=== PATIENT | female | born 1950 | race Caucasian/White ===

== ENCOUNTER 2017-01-27 06:48 | Day surgery (SDC) | payer MEDICARE, MEDICAID ==
[~2017-01-27] VITALS: Ht 162.6 cm; Wt 64.4 kg
[~2017-01-27 06:48] MED LIST: CITALOPRAM10 MG PO; ESTRADIOL1 MG PO; IMDUR 60MG. TAB60 MG PO; LOPRESSOR 25MG.25 MG PO; LOVASTATIN20 MG PO
--- NOTE | 2017-01-27 08:44 | Operative Note ---
Colonoscopy (Sam) Procedure date: 01/27/17 Date of : 46 Procedure:Colonoscopy Colonoscopy with cold and hot snare polypectomy and cold biopsies Indications: Mrs. Wiley is a 66-year-old female who is here for diagnostic colonoscopy. She has had RIGHT lower quadrant abdominal pain that has been excruciating at times. Her CAT scan of the abdomen and pelvis did show kidney stones in the LEFT kidney without hydronephrosis. The patient also had some diverticulosis of the sigmoid colon. The appendix was normal. She has had prior hysterectomy. She did have some thickening of the cecum which was possibly related to nondistention. She has had transvaginal ultrasound which was normal. She did have cholecystectomy in the early 1999s. The patient does have constipation/obstipation with a feeling of incomplete bowel evacuation. She reports some bloating and gassiness. She sometimes feels as if she cannot get a good deep breath. She reports no rectal bleeding, weight loss or family history of colon cancer. This is her first colonoscopy. Performing Provider: Sarah Vargas MD Referrring Provider: Joanne Lipscomb M.D./Jaxon Dominguez M.D. Sedation: MAC sedation Procedure: Prior to the procedure, a history and physical exam was performed, and patient medications and allergies were reviewed. The risks and benefits of the procedure and the sedation options and risks were discussed with the patient. All questions were answered and informed consent was obtained. Patient identification and proposed procedure were verified by the physician and the nurse. The patient was placed in a left lateral decubitus position. Throughout the procedure, the patient's blood pressure, pulse, and oxygen saturations were monitored continuously. Findings: On digital rectal examination there was normal rectal tone. There were no external hemorrhoids. The colonoscope was introduced through the anal canal to the rectum and advanced to the cecum. Within the cecum there was an ulcerated friable, fungating marginated mass lesion that encompassed part of the ileocecal valve and was hemiferential. Multiple biopsies were obtained. There was an adjacent polyp. The remaining ascending and transverse colon and mucosa were grossly normal. There were extensive scattered diverticuli throughout the colon but more predominantly in the descending and sigmoid colon (LEFT colon). There was a pedunculated 12 mm polyp in the proximal sigmoid colon removed via hot snare polypectomy. There was a polyp in the rectum that was 9 mm and removed via cold snare polypectomy. Upon retroflexion within the rectum there were grade 1 internal hemorrhoids. Impressions: 1. 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 Pedunculated sigmoid polyp (12 mm) 3. Sessile rectal polyp (9 mm) 4. Extensive pandiverticulosis 5. Grade 1 internal hemorrhoids Recommendations: I will discuss the findings with the patient and family. I will obtain a CEA level. She has had CT imaging. We will refer the patient for surgical resection. Complications: None EBL (ml): 0 at 0843
[2017-01-27 10:14] LABS: HEMOGLOBIN 13.9 g/dL (12.2-16.2); LYMPH # 1.5 K/mm3 (0.7-4.5); LYMPH % 13.5 % (10-50.0)
[2017-01-27 10:22] VITALS: BP 160/62
== END 2017-01-27 10:00 | disposition home or self-care (01) ==
LOC: SDC 06:48
PROVIDERS: Internal Medicine Gastroenterology
PROC: 0DBP8ZX Excision of Rectum, Via Natural or Artificial Opening Endoscopic, Diagnostic (ICD-10-PCS; 2017-01-27)
PROC: 0DBN8ZX Excision of Sigmoid Colon, Via Natural or Artificial Opening Endoscopic, Diagnostic (ICD-10-PCS; principal; 2017-01-27 08:00)
DX: C18.0 Malignant neoplasm of cecum (principal); D12.7 Benign neoplasm of rectosigmoid junction; D12.5 Benign neoplasm of sigmoid colon; K57.30 Diverticulosis of large intestine without perforation or abscess without bleeding; K64.0 First degree hemorrhoids